=== PATIENT | male | born 1995 | race Caucasian/White ===

== ENCOUNTER 2020-03-15 17:10 | Emergency (ER) | payer OTHER ==
[~2020-03-15] VITALS: Ht 172.7 cm; Wt 89.8 kg
[2020-03-15 18:41] VITALS: BP 138/77
== END 2020-03-15 18:44 | disposition home or self-care (01) ==
LOC: M.ERS 17:10
DX: S93.491A Sprain of other ligament of right ankle, initial encounter (principal); Z88.7 Allergy status to serum and vaccine; W01.0XXA Fall on same level from slipping, tripping and stumbling without subsequent striking against object, initial encounter; Y93.02 Activity, running; Y92.89 Other specified places as the place of occurrence of the external cause; Y99.8 Other external cause status

== ENCOUNTER 2021-03-22 11:36 | Emergency (ER) | payer BC ==
[~2021-03-22] VITALS: Ht 172.7 cm; Wt 86.2 kg
[2021-03-22 12:08] LABS: URINE BILIRUBIN NEGATIVE (Negative); URINE BLOOD 3+ (Negative); URINE CLARITY SL CLOUDY; URINE COLOR YELLOW; URINE GLUCOSE-RANDOM NEGATIVE (Negative); URINE KETONES NEGATIVE (Negative); URINE LEUKOCYTES-REFLEX NEGATIVE (Negative); URINE NITRITE-REFLEX NEGATIVE (Negative); URINE PROTEIN 2+ (Negative); URINE SPECIFIC GRAVITY >= 1.030 (1.005-1.030); URINE UROBILINOGEN 0.2 E.U./dl (0.2-1.0)
[2021-03-22 12:21] LABS: URINE RBC >20 Many /HPF (0-2)
[2021-03-22 12:22] LABS: MUCUS 4-6 Moderate strn/LPF (None Seen); URINE WBC-REFLEX 6-15 Few /HPF (0-5)
[2021-03-22 12:24] LABS: ABSOLUTE LYMPHOCYTES 0.9 thou/uL (0.8-5.3); ABSOLUTE MONOCYTES 0.3 thou/uL (0.0-1.2); ABSOLUTE NEUTROPHILS 4.8 thou/uL (1.6-8.1); BASOPHILS 0.7 %; EOSINOPHILS 0.1 %; HEMATOCRIT 44.3 % (42.0-52.0); HEMOGLOBIN 15.7 gm/dL (14.0-18.0); LYMPHOCYTES 14.9 %; MCH 32.7 pg (26.0-34.0); MCHC 35.5 g/dL (28.0-37.0); MCV 92.1 fL (80.0-100.0); MONOCYTES 4.3 %; MPV 7.4 fl. (7.2-11.1); NUCLEATED RBCS 0 /100WBC; PLATELET COUNT* 210 thou/uL (150-400); RBC 4.81 mil/uL (4.50-6.00); RDW-CV 12.8 % (10.5-14.5)
[2021-03-22 12:24] LABS: BACTERIA-REFLEX None Seen /HPF (None Seen); CASTS None Seen /LPF (None Seen); CRYSTALS None Seen /LPF (None Seen); SQUAMOUS 0-3 Few /LPF (0-3)
[2021-03-22 12:32] LABS: CALCIUM 8.4 mg/dL (8.5-10.1); CREATININE 1.2 mg/dL (0.6-1.3); POTASSIUM 4.3 mmol/L (3.5-5.1)
[2021-03-22 12:36] LABS: TOTAL BILIRUBIN 0.5 mg/dL (<0.1-1.0)
[2021-03-22] MEDS ORDERED: FLOMAX0.4 MG PO (14:45)
[2021-03-22] MEDS ORDERED: NORCO5 PO ×2 (14:45→14:50)
[2021-03-22 15:45] VITALS: BP 125/50
[2021-03-22] MEDS ORDERED: ONDANSETRON HCL4 M2 PO (16:13)
== END 2021-03-22 15:45 | disposition home or self-care (01) ==
LOC: M.ERS 11:36
PROVIDERS: Physician Assistant
DX: N20.0 Calculus of kidney (principal); Z88.7 Allergy status to serum and vaccine; Z98.890 Other specified postprocedural states